=== PATIENT | female | born 1970 | race Two or more races ===

== ENCOUNTER 2019-06-05 06:52 | Day surgery (SDC) | payer SELFPAY ==
[2019-06-04 11:51] VITALS: BMI 30.1
[2019-06-05] MEDS ORDERED: ceFAZolin SODIUM 1 GM VIAL ONE ×3 (07:48→14:55)
[2019-06-05] MEDS ORDERED: HEPARIN NA (PORCINE) 5,000 UNITS/ML 1ML VIAL ONE (07:48)
[2019-06-05] MEDS ORDERED: LIDOCAINE 1%-EPI 1:100,000 30 ML MDV IJ ONE (08:18)
[2019-06-05] MEDS ORDERED: EPINEPHrine/PF 1 MG/1 ML (1:1,000) AMPULE ONE ×3 (08:18→08:55)
[2019-06-05] MEDS ORDERED: BUPIVACAINE HCL/PF 0.25% (2.5MG/ML) 10 ML VIAL ONE ×2 (08:19→08:48)
[2019-06-05] MEDS ORDERED: NITROGLYCERIN 2% OINTMENT - 1GM PACKET TD ONE (08:45)
[2019-06-05] MEDS ORDERED: fentaNYL CITRATE 250 MCG/5 ML VIAL ONE ×2 (08:46→10:44)
[2019-06-05] MEDS ORDERED: BUPIVACAINE LIPOSOME/PF (EXPAREL) 266 MG/20 ML VIAL ONE (08:47)
[2019-06-05] MEDS ORDERED: ROCURONIUM BROMIDE 50 MG/5 ML SYRINGE ONE ×3 (08:47→08:48)
[2019-06-05] MEDS ORDERED: SUCCINYLCHOLINE CHLORIDE 200 MG/10 ML SYRINGE ONE (08:47)
[2019-06-05] MEDS ORDERED: PROPOFOL 20 ML ONE ×6 (08:47→13:12)
[2019-06-05] MEDS ORDERED: MIDAZOLAM HCL 2 MG/2 ML SINGLE DOSE VIAL ONE (08:47)
[2019-06-05] MEDS ORDERED: LIDOCAINE HCL 1%, 10 MG/ML (20ML VIAL) ONE (08:48)
[2019-06-05] MEDS ORDERED: LIDOCAINE HCL/PF 2% SDV 5ML VIAL ONE (08:52)
[2019-06-05] MEDS ORDERED: LIDOCAINE HCL 2% JELLY (5 ML/TUBE) ONE (08:53)
[2019-06-05] MEDS ORDERED: ceFAZolin SODIUM 1 GM VIAL IVPB ONE (09:19)
[2019-06-05] MEDS ORDERED: DEXAMETHASONE SOD PHOSPHATE 4 MG/1 ML VIAL ONE (09:27)
[2019-06-05] MEDS ORDERED: KETOROLAC TROMETHAMINE 30 MG/1 ML VIAL ONE (09:27)
[2019-06-05] MEDS ORDERED: VECURONIUM BROMIDE 10 MG VIAL ONE (09:56)
--- NOTE | 2019-06-05 12:32 | PN ---
Progress Note (short form) - Note Progress Note: Intraop [facility] Cos[facility] By Dr Jamie Cullen ( [facility] residential direct support professional ) 06/05/19 Pt undergoing Abdominoplasty surgery by Dr Bonilla I was requested to opine on intrabdominal mass felt by the surgeon palpble extraperitoneally Peritoneum is not opened I scrubbed in & palpated . approx 12 cm mass midline firm mobile arising from the pelvis . possible uterine mass, most likely fibroid uterus Pt is 48 yrs old, she is mensturating I recommend pt should follow with her Galvanizer Zinc after surgery . no need to perform emergency surgery presently without complete evaluation .
[2019-06-05] MEDS ORDERED: NEOSTIGMINE METHYLSULFATE 0.5 MG/ML - 10 ML MDV ONE (12:51)
[2019-06-05] MEDS ORDERED: GLYCOPYRROLATE 0.2 MG/1 ML VIAL ONE (12:52)
[2019-06-05] MEDS ORDERED: BACITRACIN 15 GM TUBE TOPICAL OINTMENT ONE (12:54)
[2019-06-05] MEDS ORDERED: oxyCODONE HCL 5 MG TABLET PO PRN ×3 (14:09→14:16)
[2019-06-05] MEDS ORDERED: ONDANSETRON 4 MG/2 ML VIAL IVPUSH PRN (14:09)
[2019-06-05] MEDS ORDERED: PROMETHAZINE HCL 25 MG/1 ML VIAL IVPB PRN (14:09)
[2019-06-05] MEDS ORDERED: MORPHINE SULFATE 2 MG/ML VIAL IVPUSH PRN (14:16)
[2019-06-05] MEDS ORDERED: ONDANSETRON 4 MG/2 ML VIAL IVPB PRN (14:16)
--- NOTE | 2019-06-05 14:24 | OP ---
Operative Note - Note: Operative Date: 06/05/19 Pre-Operative Diagnosis: abdominal deformity Operation: abdominoplasty with liposuction to epigastrum and bilateral flanks Findings: intra-operatively a pelvic mass was palpated and FINANCIAL SERVICES OFFICER consult done intraoperatively Post-Operative Diagnosis: Other (finding of likely fibroid uterus) Surgeon: Brody Bonilla Anesthesia: General Drains & Tubes with Location: [facility] x 3 Operative Report Dictated: Yes
[2019-06-05] MEDS ORDERED: LACTATED RINGERS SOLUTION 1,000 ML IV SCH (14:30)
[2019-06-05] MEDS ORDERED: CEFAZOLIN 1 GM/D5W 1 GM/50 ML BAG IVPB SCH (15:00)
--- NOTE | 2019-06-05 16:05 | OP ---
DATE OF OPERATION: 06/05/2019 PROCEDURE: Abdominoplasty with liposuction to the epigastrium and bilateral flanks. PREOPERATIVE DIAGNOSIS: Abdominal lipodystrophy and deformity. POSTOPERATIVE DIAGNOSIS: Abdominal lipodystrophy and deformity. Intraoperative finding of a midline pelvic palpable mass for which gynecologic consult is performed intraoperatively. ANESTHESIA: General endotracheal anesthesia. The patient additionally received 60 mL of a mixture of 20 mL of Exparel and 40 mL of 0.25% Marcaine plain to the abdominal wall intraoperatively. DESCRIPTION OF PROCEDURE: Patient is marked in the holding area. She is counseled on all risks, benefits, alternatives of the procedure as well as its limitations. She understands. Agrees to proceed. She is brought to the operating room, placed in a supine position. After anesthesia is given, a Mason catheter is placed, which was removed at the end of the procedure. She is given 2 g of Ancef preoperatively. At this point, she is also given 5000 units of subcutaneous heparin. After full prepping and draping, a time-out is called. Patient procedure, site, sides are verified. The procedure is as follows. An incision was made beneath the pannus crease as preoperatively marked. Dissection is carried down to the level of the abdominal wall fascia where dissection is then continued along the abdominal wall fascia cephalad to the level of the umbilicus. At this point, once the overhanging pannus is retracted, I palpated a midline pelvic mass, which clinically was consistent with a large fibroid uterus. Given this finding, a NOTE TELLER consult was ordered, and the NOTE TELLER consult is pending by Dr. Ayala, and that is dictated and documented separately. It is her assessment that there is no requirement for immediate additional treatment and that the operation can and should continue as planned. The umbilicus is then circumferentially incised dissected on a fibrofatty stalk leaving adequate perforating vasculature to the umbilicus. Dissection is then continued in a narrow tunnel in the midline cephalad to the level of the xiphoid process leaving just adequate place for a midline plication. Hemostasis was meticulously achieved. Midline plication is then performed 1st with a series of interrupted buried [id number] No. 1 Prolene sutures both above and below the umbilicus. A 2nd reinforcement layer with a running, locking No. 1 Prolene suture in the midline is performed. The thickness of the abdominal flap is treated 1st by direct trimming of some of the sub Mar[place]ruz fat. Irrigation and hemostasis were performed. The patient is then brought to a 30-degree flexed position where excess skin and fat are marked and trimmed. The skin is tailor tacked, and the position of the umbilicus is then marked. A pattern is used for inset of the umbilicus with inset with a series of interrupted buried deep dermal 3-0 Monocryl suture and combination of running interrupted 4-0 nylon sutures. At this point, 3 size 19 round J-P drains were placed, 1 on the right side of the abdomen, 1 on the left side of the abdomen, and 1 in the central midline tunnel. Drains were secured with 2-0 silk drain suture. With the skin tailor tacked, it is determined that there is still requirement for mid epigastric liposuction as well as bilateral flank liposuction. These tissues are infiltrated. A total of 1500 mL of wetting solution is infiltrated. The wetting solution in this case is a liter of lactated Ringer's with 1 amp 1:100,000 epinephrine. It should also be noted that prior to closure injection with the aforementioned Exparel mixture is performed into the abdominal wall fascia. Closure is then performed with a series of interrupted buried [place]ruz layer superficial fascial system 2-0 Vicryl sutures followed by a series of interrupted buried deep dermal 3-0 Monocryl suture followed by a running V-Lock suture. Prior to final closure, liposuction is performed of the midepigastrium and bilateral flanks. The SAFE technique for liposuction in its separate form with pre and post tunneling, and the liposuction is performed with a 4-mm cannula using a Micro-Aire power assisted system. The wetting solution had been given a full 25 minutes for hemostatic effect. The lipoaspirates were 350 mL from each flank and 100 mL from the midepigastrium. Tissues appear viable. Closure is finalized with several interrupted 4-0 nylon suture. Drains were placed to bulb suction. A dressing is applied with routine nitroglycerin paste of the suprapubic skin. Bacitracin, Xeroform to the umbilicus, 1/2-inch Steri-Strips to the incisions. ABD gauze and abdominal binder. Patient awoken from anesthesia. Transferred in a flexed position to a hospital bed having tolerated procedure well. Khoi MCKEON/[id number]
[2019-06-05 20:22] VITALS: TEMP 98
[2019-06-05 20:25] VITALS: BP 138/77; PULSE 77
[2019-06-06] MEDS ORDERED: HEPARIN NA (PORCINE) 5,000 UNITS/ML 1ML VIAL SQ SCH (08:00)
== END 2019-06-05 19:45 | disposition home or self-care (01) ==
LOC: JASU-SURG 06:52
PROVIDERS: ATTEND Plastic Surgery
CPT/HCPCS: 84703; 94760; J1644